=== PATIENT | female | born 1995 | race African-American/Black ===

== ENCOUNTER 2020-05-13 21:14 | Emergency (ER) | payer OTHER ==
[2020-05-13 21:22] VITALS: BP 107/71; PULSE 109; TEMP 98.1
[2020-05-13] MEDS ORDERED: FLUCONAZOLE 100 MG TABLET (UD) PO ONE (22:17)
[2020-05-13] MEDS ORDERED: FLUCONAZOLE 100 MG TABLET (UD) ONE (22:21)
== END 2020-05-13 22:26 | disposition home or self-care (01) ==
LOC: JER 21:14
DX: N77.1 Vaginitis, vulvitis and vulvovaginitis in diseases classified elsewhere (principal); B35.6 Tinea cruris
CPT/HCPCS: 36415; 87070; 87205; 87491; 87591; 99284-25